=== PATIENT | male | born 1980 | race Hispanic/Latino ===

== ENCOUNTER 2024-05-17 18:36 | Emergency (ER) | payer MEDICAID ==
[~2024-05-17] VITALS: Ht 180.3 cm; Wt 115.7 kg
[2024-05-17] MEDS: KETOROLAC 30MG VIAL (30MG/ML) IVP ONE (19:25)
[2024-05-17] MEDS: 0.9%NACL 1000ML 1,000 ML IV ONE (19:25)
[2024-05-17 19:41] LABS: BASOPHILS # (AUTO) 0.07 K/uL (0.00-0.20); BASOPHILS % (AUTO) 0.4 % (0.0-5.0); EOSINOPHILS % (AUTO) 4.8 % (0.0-8.0); HEMATOCRIT 49.6 % (42-54); IMMATURE GRANULOCYTE ABSOLUTE 0.07 K/uL (0-1); LYMPHOCYTES # (AUTO) 2.8 K/uL (1.0-4.8); LYMPHOCYTES % (AUTO) 16.4 % (21.0-51.0); MEAN CORPUSCULAR HEMOGLOBIN 27.9 pg (27.0-33.0); MEAN CORPUSCULAR HGB CONC 33.1 g/dL (32.0-36.0); MEAN CORPUSCULAR VOLUME 84.5 fL (79-99); MONOCYTES # (AUTO) 1.4 K/uL (0.1-1.0); MONOCYTES % (AUTO) 8.3 % (3.0-13.0); NEUTROPHILS # (AUTO) 11.7 K/uL (1.8-7.7); NEUTROPHILS % (AUTO) 69.7 % (40.0-77.0); PLATELET COUNT (AUTO) 453 K/uL (130-400); RED BLOOD CELL COUNT(AUTO) 5.87 MIL/uL (4.50-6.20); RED CELL DISTRIBUTION WIDTH 13.7 % (11.0-15.5); WHITE BLOOD COUNT (AUTO) 16.8 K/uL (4.8-10.8)
[2024-05-17 19:53] LABS: APPEARANCE,URINE CLEAR (CLEAR); BILIRUBIN,URINE NEGATIVE (NEGATIVE); COLOR,URINE YELLOW (YELLOW); GLUCOSE, URINE (UA) NEGATIVE (NEGATIVE); KETONES,URINE NEGATIVE (NEGATIVE); LEUKOCYTE ESTERASE ,URINE NEGATIVE Leu/uL (NEGATIVE); NITRATE,URINE NEGATIVE (NEGATIVE); OCCULT BLOOD,URINE NEGATIVE (NEGATIVE); PROTEIN,URINE 50 mg/dL (NEGATIVE); UROBILINOGEN,URINE 0.2 mg/dL (0.2-1.0)
[2024-05-17 19:54] LABS: ADD UA MICROSCOPIC YES
[2024-05-17 19:57] LABS: MUCUS,URINE RARE LPF (None Seen); SQUAMOUS EPITHELIAL CELL,UR RARE /HPF (0-2); WBC,URINE 0-1 /HPF (0-1)
[2024-05-17 20:03] LABS: ALBUMIN 3.7 g/dL (3.5-5.0); BILIRUBIN,TOTAL 0.5 mg/dL (0.2-1.0); TOTAL PROTEIN, SERUM 7.9 g/dL (6.0-8.3)
[2024-05-17] MEDS ORDERED: GOLY4L PO (20:21)
[2024-05-17 20:38] VITALS: BP 127/77; PULSE 65; RESP 18; O2SAT 99
== END 2024-05-17 20:40 | disposition home or self-care (01) ==
LOC: EDH 18:36
DX: K59.00 Constipation, unspecified (principal); E86.0 Dehydration
CPT/HCPCS: 99285; 74176; 96374; 80053; 83690; 85025; 81001; 36415; J7030; J1885